=== PATIENT | female | born 1955 | race Hispanic/Latino ===

== ENCOUNTER 2019-05-12 08:56 | Day surgery (SDC) | payer MEDICARE ==
[~2019-05-12] VITALS: Ht 149.9 cm; Wt 59.0 kg
[~2019-05-12 08:56] MED LIST: SODIUM CHLORIDE 0.9% 1000ML 1,000 ML IV ONE
[2019-05-12 10:22] LABS: BASOPHILS % (AUTO) 1.3 % (0.0-5.0); EOSINOPHILS % (AUTO) 9.8 % (0.0-8.0); HEMATOCRIT 28.2 % (36-48); MEAN CORPUSCULAR HEMOGLOBIN 32.4 pg (27.0-33.0); MEAN CORPUSCULAR HGB CONC 33.7 g/dL (32.0-36.0); MEAN CORPUSCULAR VOLUME 96.2 fL (79-99); MONOCYTES % (AUTO) 10.2 % (3.0-13.0); NEUTROPHILS % (AUTO) 41.7 % (40.0-77.0); NUCLEATED RED BLOOD CELLS 0.1 % (0.0-0.19); PLATELET COUNT (AUTO) 296 K/uL (130-400); RED BLOOD CELL COUNT(AUTO) 2.93 MIL/uL (4.00-5.50); RED CELL DISTRIBUTION WIDTH 15.7 % (11.0-15.5); WHITE BLOOD COUNT (AUTO) 8.2 K/uL (4.8-10.8)
[2019-05-12 10:33] LABS: INR 0.96 (0.85-1.15); PROTHROMBIN TIME 10.1 SEC (9.6-11.6)
[2019-05-12] MEDS ORDERED: PROPOFOL 10 MG/ML 20ML VIAL IV ONE (11:08)
[2019-05-12 11:09] VITALS: BP 113/51
[2019-05-12] MEDS ORDERED: LIDOCAINE HCL 1% 20 ML VIAL ONE (11:09)
[2019-05-12 11:33] VITALS: BP 103/43
[2019-05-12 11:38] VITALS: BP 110/45
[2019-05-12] MEDS ORDERED: GLIP5TAB11 PO (11:39)
[2019-05-12] MEDS ORDERED: SULF500T8 PO (11:39)
[2019-05-12] MEDS ORDERED: LEVO100T12 PO (11:39)
[2019-05-12] MEDS ORDERED: TYL3 PO (11:39)
[2019-05-12] MEDS ORDERED: ATEN25TA PO (11:39)
[2019-05-12] MEDS ORDERED: PRED5TAB44 PO (11:39)
[2019-05-12] MEDS ORDERED: PANT40TA25 PO (11:39)
[2019-05-12] MEDS ORDERED: FOLI1TAB15 PO (11:39)
[2019-05-12] MEDS ORDERED: LORA10CA9 PO (11:39)
[2019-05-12 11:43] VITALS: BP 111/42
== END 2019-05-12 11:59 | disposition home or self-care (01) ==
LOC: ENDO 08:56 → DAH 08:56 → ENDO 11:59
PROVIDERS: ATTEND Internal Medicine
DX: K85.90 Acute pancreatitis without necrosis or infection, unspecified (principal); K31.89 Other diseases of stomach and duodenum; K21.9 Gastro-esophageal reflux disease without esophagitis; M81.0 Age-related osteoporosis without current pathological fracture; M19.90 Unspecified osteoarthritis, unspecified site; K51.90 Ulcerative colitis, unspecified, without complications; K59.01 Slow transit constipation; E03.9 Hypothyroidism, unspecified; I10 Essential (primary) hypertension; Z79.899 Other long term (current) drug therapy; Z96.642 Presence of left artificial hip joint; Z98.890 Other specified postprocedural states
CPT/HCPCS: 36415; 43237; 82948 ×2; 85025; 85610; A4215; A4221; A4222; A4223; A4606; A4620; A4663; J2704; J7030